=== PATIENT | female | born 1960 | race Caucasian/White ===

== ENCOUNTER 2019-08-24 04:43 | Inpatient (IN) ==
[2019-08-24] MEDS ORDERED: *HR* HYDROcodone/Acet 5/325 mg TABLET PO ONE (05:21)
[2019-08-24 05:42] LABS: Basophils % 0.1 %; Hematocrit 37.5 % (35.3-44.9); Hemoglobin 10.9 g/dL (11.5-15.4); Lymphocytes # 0.8 K/mcL (0.6-4.6); Lymphocytes % 3.4 %; Mean Corpuscular HGB Conc 29.1 g/dL (31.6-35.5); Mean Corpuscular Volume 92.8 fL (83.0-100.0); Mean Platelet Volume 9.3 fL (9.4-12.4); Monocytes # 0.5 K/mcL (0.0-1.3); Monocytes % 2.1 %; Neutrophils # 20.8 K/mcL (1.6-8.9); Platelet Count 167 K/mcL (140-400); Red Blood Count 4.04 M/mcL (3.82-4.97); Red Cell Distribution Width 16.8 % (11.5-14.5); Segmented Neutrophils % 93.4 %; White Blood Count 22.3 K/mcL (4.3-11.1)
[2019-08-24 05:49] LABS: INR 1.3; Prothrombin Time 14.2 Seconds (9.4-12.1)
[2019-08-24 05:49] LABS: ABG Base Excess 7 mEq/L (-2 to 3); ABG HCO3 34 mEq/L (21-27); ABG Oxygen Saturation 89 % (95-98); ABG PCO2 57 mmHg (35-45); ABG PH 7.38 pH Units (7.32-7.45); ABG PO2 59 mmHg (85-104); ABG TCO2 36 mEq/L (20-26)
[2019-08-24 05:53] LABS: Bilirubin,Urine Negative (Negative); Blood,Urine Negative (Negative); Clarity,Urine Clear (Clear); Color,Urine Yellow (Yellow); Glucose,Urine (UA) Normal (Normal); Ketones,Urine Negative (Negative); Leukocyte Esterase,Urine Negative (Negative); Nitrite,Urine Negative (Negative); PH,Urine 8.5 pH Units (5.0-8.0); Protein,Urine Negative (Neg-Trace); Specific Gravity,Urine 1.015 (1.010-1.025)
[2019-08-24 06:01] LABS: Alanine Aminotransferase 7 Units/L (7-52); Albumin 3.7 g/dL (3.5-5.7); Albumin/Globulin Ratio 1.1 (1.1-2.2); Alkaline Phosphatase 92 Units/L (34-104); Aspartate Amino Transferase 8 Units/L (13-39); BUN/Creatinine Ratio 14 (6-26); Bilirubin,Total 0.6 mg/dL (0.3-1.0); Blood Urea Nitrogen 14 mg/dL (6-20); Calcium 9.2 mg/dL (8.6-10.3); Carbon Dioxide 33 mEq/L (23-29); Chloride 96 mEq/L (98-107); Globulin 3.4 g/dL (2.4-3.5); Glucose 111 mg/dL (70-105); Magnesium 1.7 mg/dL (1.6-2.6); Osmolality,Calculated 281 (280-300); Potassium 4.2 mEq/L (3.5-5.1); Sodium 135 mEq/L (136-145); Total Protein 7.1 g/dL (6.4-8.9); eGFR For African Americans > 60 (> 60); eGFR For Non-African Americans 55 (> 60)
[2019-08-24 06:05] LABS: Troponin I < 0.03 ng/mL (< 0.04)
[2019-08-24] MEDS ORDERED: Azithromycin 500 MG in 0.9 % Sodium Chloride 250 ML IVPB ONE ×2 (06:09→06:32)
[2019-08-24] MEDS ORDERED: cefTRIAXone 1,000 MG in Water for inj. (sterile) 10 ML IVP ONE ×2 (06:09→06:32)
[2019-08-24] MEDS ORDERED: *HR* Promethazine 25 MG/ML VIAL IVP PRN (06:32)
[2019-08-24] MEDS ORDERED: Albuterol 2.5 MG/3 ML NEBULIZER IH PRN (06:32)
[2019-08-24] MEDS ORDERED: NON-FORMULARY MEDICATION 1 EACH EACH (Cholecalciferol (Vitamin D3) [Vitamin D3] 50,000 UNI PO SCH (06:32)
[2019-08-24] MEDS: Ipratropium/Albuterol Neb 3 ML IH SCH ×4 (06:45→23:50)
[2019-08-24] MEDS: 0.9 % Sodium Chloride 1,000 ML IVC SCH ×2 (08:00→22:03)
[2019-08-24] MEDS ORDERED: RisperiDAL 3 MG TABLET PO SCH (09:00)
[2019-08-24] MEDS: Furosemide 40 MG TABLET PO SCH ×2 (10:41→23:49)
[2019-08-24] MEDS: tiZANidine 4 MG TABLET PO SCH ×2 (10:41→23:50)
[2019-08-24] MEDS: Folic Acid 1 MG TABLET PO SCH (10:41)
[2019-08-24] MEDS: Gabapentin 300 MG CAPSULE PO SCH (10:41)
[2019-08-24] MEDS: Cholecalciferol (D-3) 1,000 UNIT (25MCG) TABLET PO SCH ×2 (10:42→10:47)
[2019-08-24] MEDS ORDERED: methylPREDNISolone 125 MG/2 ML VIAL IM SCH (12:00)
[2019-08-24] MEDS: *HR* HYDROcodone/Acet 5/325 mg TABLET PO PRN (13:12)
[2019-08-24] MEDS: *HR* Rivaroxaban 10 MG TABLET PO SCH (17:16)
[2019-08-24] MEDS: Acetaminophen 325 MG TABLET PO PRN (18:53)
[2019-08-24] MEDS: Nystatin POWDER 30 GM BOTTLE TP SCH (23:49)
[2019-08-24] MEDS: Gabapentin 100 MG CAPSULE PO SCH (23:49)
[2019-08-24] MEDS: Melatonin 3 MG TABLET PO SCH (23:49)
[2019-08-25] MEDS: methylPREDNISolone 125 MG/2 ML VIAL IVPB SCH ×3 (00:43→16:52)
[2019-08-25] MEDS: Ipratropium/Albuterol Neb 3 ML IH SCH ×4 (03:40→21:10)
[2019-08-25] MEDS: Azithromycin 500 MG in D5% in Water 250 ML IVPB SCH (05:53)
[2019-08-25] MEDS: tiZANidine 4 MG TABLET PO SCH ×2 (07:52→21:11)
[2019-08-25] MEDS: Gabapentin 300 MG CAPSULE PO SCH (07:52)
[2019-08-25] MEDS: Folic Acid 1 MG TABLET PO SCH (08:10)
[2019-08-25] MEDS: Furosemide 40 MG TABLET PO SCH ×2 (08:10→21:10)
[2019-08-25] MEDS: Gabapentin 100 MG CAPSULE PO SCH ×3 (08:10→21:10)
[2019-08-25] MEDS: Acetaminophen 325 MG TABLET PO PRN (08:10)
[2019-08-25] MEDS: Nystatin POWDER 30 GM BOTTLE TP SCH ×2 (08:11→21:19)
[2019-08-25 08:56] LABS: Basophils % 0.2 %; Hematocrit 38.2 % (35.3-44.9); Hemoglobin 11.1 g/dL (11.5-15.4); Immature Granulocytes % 0.7 % (0-4); Lymphocytes # 0.9 K/mcL (0.6-4.6); Lymphocytes % 5.9 %; Mean Corpuscular HGB Conc 29.1 g/dL (31.6-35.5); Mean Corpuscular Volume 92.9 fL (83.0-100.0); Mean Platelet Volume 9.8 fL (9.4-12.4); Monocytes # 0.2 K/mcL (0.0-1.3); Platelet Count 183 K/mcL (140-400); Red Blood Count 4.11 M/mcL (3.82-4.97); Red Cell Distribution Width 17.2 % (11.5-14.5); Segmented Neutrophils % 92.2 %
[2019-08-25 09:07] LABS: BUN/Creatinine Ratio 17 (6-26); Blood Urea Nitrogen 16 mg/dL (6-20); Calcium 9.2 mg/dL (8.6-10.3); Carbon Dioxide 33 mEq/L (23-29); Chloride 98 mEq/L (98-107); Glucose 182 mg/dL (70-105); Osmolality,Calculated 288 (280-300); Potassium 3.8 mEq/L (3.5-5.1); Sodium 136 mEq/L (136-145); Troponin I < 0.03 ng/mL (< 0.04); eGFR For African Americans > 60 (> 60); eGFR For Non-African Americans > 60 (> 60)
[2019-08-25 09:22] LABS: Neutrophils # 13.8 K/mcL (1.6-8.9)
[2019-08-25] MEDS: *HR* HYDROcodone/Acet 5/325 mg TABLET PO PRN (12:22)
[2019-08-25] MEDS: *HR* Rivaroxaban 10 MG TABLET PO SCH (16:52)
[2019-08-25] MEDS: Melatonin 3 MG TABLET PO SCH (21:10)
[2019-08-25] MEDS: RisperiDAL 3 MG TABLET PO SCH (21:11)
[2019-08-26] MEDS: Ipratropium/Albuterol Neb 3 ML IH SCH ×4 (04:27→21:10)
[2019-08-26] MEDS: Azithromycin 500 MG in D5% in Water 250 ML IVPB SCH (07:57)
[2019-08-26] MEDS: Gabapentin 100 MG CAPSULE PO SCH ×3 (08:02→21:09)
[2019-08-26] MEDS: Folic Acid 1 MG TABLET PO SCH (08:03)
[2019-08-26] MEDS: predniSONE 10 MG TABLET PO SCH (08:03)
[2019-08-26] MEDS: Furosemide 40 MG TABLET PO SCH ×2 (08:03→21:19)
[2019-08-26] MEDS: Nystatin POWDER 30 GM BOTTLE TP SCH ×2 (08:03→21:23)
[2019-08-26] MEDS: *HR* HYDROcodone/Acet 5/325 mg TABLET PO PRN ×2 (08:03→21:15)
[2019-08-26 10:08] LABS: Hematocrit 36.3 % (35.3-44.9); Hemoglobin 10.6 g/dL (11.5-15.4); Mean Corpuscular HGB Conc 29.2 g/dL (31.6-35.5); Mean Corpuscular Hemoglobin 27.4 pg (28.0-33.3); Mean Corpuscular Volume 93.8 fL (83.0-100.0); Platelet Count 199 K/mcL (140-400); Red Blood Count 3.87 M/mcL (3.82-4.97); Red Cell Distribution Width 17.2 % (11.5-14.5); White Blood Count 13.9 K/mcL (4.3-11.1)
[2019-08-26 10:22] LABS: Alanine Aminotransferase 6 Units/L (7-52); Albumin 3.4 g/dL (3.5-5.7); Albumin/Globulin Ratio 0.9 (1.1-2.2); Alkaline Phosphatase 70 Units/L (34-104); Aspartate Amino Transferase 6 Units/L (13-39); BUN/Creatinine Ratio 21 (6-26); Bilirubin,Total 0.3 mg/dL (0.3-1.0); Blood Urea Nitrogen 20 mg/dL (6-20); Calcium 8.9 mg/dL (8.6-10.3); Carbon Dioxide 34 mEq/L (23-29); Chloride 98 mEq/L (98-107); Globulin 3.6 g/dL (2.4-3.5); Glucose 138 mg/dL (70-105); Magnesium 2.1 mg/dL (1.6-2.6); Osmolality,Calculated 285 (280-300); Potassium 3.9 mEq/L (3.5-5.1); Sodium 135 mEq/L (136-145); eGFR For African Americans > 60 (> 60); eGFR For Non-African Americans > 60 (> 60)
[2019-08-26] MEDS: *HR* Rivaroxaban 10 MG TABLET PO SCH (16:31)
[2019-08-26] MEDS: Acetaminophen 325 MG TABLET PO PRN (16:33)
[2019-08-26] MEDS: tiZANidine 4 MG TABLET PO SCH (21:09)
[2019-08-26] MEDS: RisperiDAL 3 MG TABLET PO SCH (21:09)
[2019-08-26] MEDS: Melatonin 3 MG TABLET PO SCH (21:09)
[2019-08-27] MEDS: Ipratropium/Albuterol Neb 3 ML IH SCH ×4 (03:49→22:40)
[2019-08-27] MEDS: Azithromycin 500 MG in D5% in Water 250 ML IVPB SCH (06:21)
[2019-08-27] MEDS: Gabapentin 100 MG CAPSULE PO SCH ×3 (08:23→21:09)
[2019-08-27] MEDS: predniSONE 10 MG TABLET PO SCH (08:23)
[2019-08-27] MEDS: Furosemide 40 MG TABLET PO SCH ×2 (08:23→21:09)
[2019-08-27] MEDS: *HR* HYDROcodone/Acet 5/325 mg TABLET PO PRN ×2 (08:23→22:39)
[2019-08-27] MEDS: Folic Acid 1 MG TABLET PO SCH (08:23)
[2019-08-27] MEDS: Nystatin POWDER 30 GM BOTTLE TP SCH ×2 (08:24→22:42)
[2019-08-27] MEDS ORDERED: Cholecalciferol (D-3) 1,000 UNIT (25MCG) TABLET PO SCH (09:00)
[2019-08-27] MEDS: *HR* Rivaroxaban 10 MG TABLET PO SCH (16:18)
[2019-08-27] MEDS: tiZANidine 4 MG TABLET PO SCH (21:09)
[2019-08-27] MEDS: RisperiDAL 3 MG TABLET PO SCH (21:10)
[2019-08-27] MEDS: Melatonin 3 MG TABLET PO SCH (22:40)
[2019-08-28] MEDS: Ipratropium/Albuterol Neb 3 ML IH SCH ×2 (03:58→12:50)
[2019-08-28 06:07] LABS: Hematocrit 37.4 % (35.3-44.9); Hemoglobin 10.7 g/dL (11.5-15.4); Mean Corpuscular HGB Conc 28.6 g/dL (31.6-35.5); Mean Corpuscular Hemoglobin 26.7 pg (28.0-33.3); Mean Corpuscular Volume 93.3 fL (83.0-100.0); Mean Platelet Volume 9.3 fL (9.4-12.4); Platelet Count 196 K/mcL (140-400); Red Blood Count 4.01 M/mcL (3.82-4.97); Red Cell Distribution Width 16.6 % (11.5-14.5); White Blood Count 8.4 K/mcL (4.3-11.1)
[2019-08-28 06:42] LABS: BUN/Creatinine Ratio 20 (6-26); Blood Urea Nitrogen 19 mg/dL (6-20); Carbon Dioxide 40 mEq/L (23-29); Chloride 97 mEq/L (98-107); Glucose 116 mg/dL (70-105); Osmolality,Calculated 291 (280-300); Potassium 3.8 mEq/L (3.5-5.1); Sodium 139 mEq/L (136-145); eGFR For African Americans > 60 (> 60); eGFR For Non-African Americans 60 (> 60)
[2019-08-28 07:29] VITALS: BP 132/74
[2019-08-28] MEDS: Nystatin POWDER 30 GM BOTTLE TP SCH (07:47)
[2019-08-28] MEDS: Gabapentin 100 MG CAPSULE PO SCH (07:47)
[2019-08-28] MEDS: Folic Acid 1 MG TABLET PO SCH (07:47)
[2019-08-28] MEDS: Furosemide 40 MG TABLET PO SCH (07:47)
[2019-08-28] MEDS ORDERED: Cefdinir 300 MG CAPSULE PO SCH (09:00)
== END 2019-08-28 14:30 | disposition home health service (06) | DRG 194 ==
LOC: INPGRE 04:43 → EMEROOGRE 04:43 → INPGRE 07:11

== ENCOUNTER 2019-09-29 12:29 | Inpatient (IN) ==
[2019-09-29 13:12] LABS: Basophils % 0.3 %; Hematocrit 38.6 % (35.3-44.9); Hemoglobin 11.3 g/dL (11.5-15.4); Immature Granulocytes % 0.5 % (0-4); Lymphocytes % 16.1 %; Mean Corpuscular HGB Conc 29.3 g/dL (31.6-35.5); Mean Corpuscular Hemoglobin 26.9 pg (28.0-33.3); Mean Corpuscular Volume 91.9 fL (83.0-100.0); Mean Platelet Volume 9.7 fL (9.4-12.4); Monocytes # 0.5 K/mcL (0.0-1.3); Monocytes % 7.8 %; Neutrophils # 4.6 K/mcL (1.6-8.9); Platelet Count 155 K/mcL (140-400); Red Cell Distribution Width 17.2 % (11.5-14.5); Segmented Neutrophils % 75.3 %; White Blood Count 6.2 K/mcL (4.3-11.1)
[2019-09-29 13:26] LABS: Albumin/Globulin Ratio 1.1 (1.1-2.2); Bilirubin,Total 0.7 mg/dL (0.3-1.0); Globulin 3.5 g/dL (2.4-3.5); Potassium 3.8 mEq/L (3.5-5.1); Total Protein 7.5 g/dL (6.4-8.9)
[2019-09-29] MEDS ORDERED: 0.9 % Sodium Chloride 500 ML IVC ONE (13:29)
[2019-09-29] MEDS ORDERED: cefTRIAXone 1,000 MG in 0.9 % Sodium Chloride Mini Bag 100 ML IVPB ONE (13:30)
[2019-09-29] MEDS ORDERED: Azithromycin 500 MG in 0.9 % Sodium Chloride 250 ML IVPB ONE ×2 (15:14→17:27)
[2019-09-29] MEDS ORDERED: *HR* Promethazine 25 MG/ML VIAL IVP PRN ×2 (15:21→17:27)
[2019-09-29] MEDS ORDERED: Naloxone 0.4 MG/ML INJ IVP PRN ×2 (15:21→17:27)
[2019-09-29] MEDS ORDERED: Piperacillin/Tazobactam 3.375 GM in 0.9 % Sodium Chloride Mini Bag 100 ML IVPB SCH (16:00)
[2019-09-29] MEDS ORDERED: 0.9 % Sodium Chloride 1,000 ML IVC SCH (18:00)
[2019-09-29] MEDS: Cholecalciferol (D-3) 1,000 UNIT (25MCG) TABLET PO SCH (18:55)
[2019-09-29] MEDS: Melatonin 3 MG TABLET PO SCH (21:51)
[2019-09-29] MEDS: Gabapentin 300 MG CAPSULE PO SCH (21:52)
[2019-09-29] MEDS: Ipratropium/Albuterol Neb 3 ML IH SCH (21:55)
[2019-09-29] MEDS: Piperacillin/Tazobactam 3.375 GM in 0.9 % Sodium Chloride Mini Bag 100 ML IVPB SCH (23:56)
[2019-09-30] MEDS: Ipratropium/Albuterol Neb 3 ML IH SCH ×4 (03:56→22:10)
[2019-09-30 06:52] LABS: Basophils % 0.2 %; Hematocrit 35.2 % (35.3-44.9); Hemoglobin 10.5 g/dL (11.5-15.4); Immature Granulocytes % 0.4 % (0-4); Lymphocytes # 1.3 K/mcL (0.6-4.6); Lymphocytes % 26.7 %; Mean Corpuscular HGB Conc 29.8 g/dL (31.6-35.5); Mean Corpuscular Hemoglobin 27.7 pg (28.0-33.3); Mean Corpuscular Volume 92.9 fL (83.0-100.0); Mean Platelet Volume 10.2 fL (9.4-12.4); Monocytes # 0.4 K/mcL (0.0-1.3); Monocytes % 7.4 %; Neutrophils # 3.3 K/mcL (1.6-8.9); Platelet Count 111 K/mcL (140-400); Red Blood Count 3.79 M/mcL (3.82-4.97); Red Cell Distribution Width 17.5 % (11.5-14.5); Segmented Neutrophils % 65.3 %
[2019-09-30 07:10] LABS: Albumin 3.5 g/dL (3.5-5.7); Albumin/Globulin Ratio 1.1 (1.1-2.2); Bilirubin,Total 0.6 mg/dL (0.3-1.0); Calcium 8.4 mg/dL (8.6-10.3); Globulin 3.1 g/dL (2.4-3.5); Magnesium 2.3 mg/dL (1.6-2.6); Potassium 4.1 mEq/L (3.5-5.1); Total Protein 6.6 g/dL (6.4-8.9)
[2019-09-30] MEDS: *HR* Rivaroxaban 10 MG TABLET PO SCH (09:32)
[2019-09-30] MEDS: Gabapentin 300 MG CAPSULE PO SCH ×3 (09:32→22:10)
[2019-09-30] MEDS: Folic Acid 1 MG TABLET PO SCH (09:33)
[2019-09-30] MEDS: Piperacillin/Tazobactam 3.375 GM in 0.9 % Sodium Chloride Mini Bag 100 ML IVPB SCH ×2 (09:34→18:16)
[2019-09-30] MEDS: Cholecalciferol (D-3) 1,000 UNIT (25MCG) TABLET PO SCH (09:37)
[2019-09-30] MEDS: risperiDONE 1 MG TABLET PO SCH ×2 (09:37→09:44)
[2019-09-30] MEDS: (Mirabegron [Myrbetriq] 50 MG) PO SCH (09:37)
[2019-09-30 14:10] LABS: Estimated Average Glucose 117 mg/dl
[2019-09-30 18:13] LABS: Adenovirus Not Detected (Not Detect); Coronavirus 229E Not Detected (Not Detect); Coronavirus HKU1 Not Detected (Not Detect); Coronavirus NL63 Not Detected (Not Detect); Coronavirus OC43 Not Detected (Not Detect); Human Metapneumovirus Not Detected (Not Detect); Human Rhinovirus/Enterovirus Not Detected (Not Detect)
[2019-09-30 18:14] LABS: Bordetella Pertussis Not Detected (Not Detect); Chlamydophila pneumoniae Not Detected (Not Detect); Influenza A Subtype 2009 H1 Not Detected (Not Detect); Influenza B Not Detected (Not Detect); Mycoplasma pneumoniae Not Detected (Not Detect); Parainfluenza Virus 1 Not Detected (Not Detect); Parainfluenza Virus 2 Not Detected (Not Detect); Parainfluenza Virus 3 Not Detected (Not Detect); Parainfluenza Virus 4 Not Detected (Not Detect); Respiratory Syncytial Virus Not Detected (Not Detect)
[2019-09-30] MEDS: *HR* HYDROcodone/Acet 5/325 mg TABLET PO SCH (22:10)
[2019-09-30] MEDS: Melatonin 3 MG TABLET PO SCH (22:10)
[2019-10-01] MEDS: Piperacillin/Tazobactam 3.375 GM in 0.9 % Sodium Chloride Mini Bag 100 ML IVPB SCH ×3 (00:19→17:44)
[2019-10-01] MEDS: Ipratropium/Albuterol Neb 3 ML IH SCH ×5 (04:32→21:33)
[2019-10-01] MEDS: (Mirabegron [Myrbetriq] 50 MG) PO SCH (07:55)
[2019-10-01] MEDS: risperiDONE 1 MG TABLET PO SCH (08:11)
[2019-10-01] MEDS: Gabapentin 300 MG CAPSULE PO SCH ×3 (08:11→21:33)
[2019-10-01] MEDS: Acetaminophen 325 MG TABLET PO PRN ×2 (08:11→17:51)
[2019-10-01] MEDS: *HR* Rivaroxaban 10 MG TABLET PO SCH (08:11)
[2019-10-01] MEDS: Folic Acid 1 MG TABLET PO SCH (08:12)
[2019-10-01] MEDS: Cholecalciferol (D-3) 1,000 UNIT (25MCG) TABLET PO SCH (08:12)
[2019-10-01] MEDS: Furosemide 40 MG TABLET PO SCH (09:32)
[2019-10-01] MEDS: *HR* HYDROcodone/Acet 5/325 mg TABLET PO SCH ×2 (09:45→21:34)
[2019-10-01] MEDS ORDERED: Menthol 9.1 MG LOZENGE PO PRN (10:29)
[2019-10-01] MEDS: Melatonin 3 MG TABLET PO SCH (21:34)
[2019-10-02] MEDS: Piperacillin/Tazobactam 3.375 GM in 0.9 % Sodium Chloride Mini Bag 100 ML IVPB SCH ×3 (00:35→16:11)
[2019-10-02] MEDS: Ipratropium/Albuterol Neb 3 ML IH SCH ×4 (04:17→22:17)
[2019-10-02 06:12] LABS: Hematocrit 35.4 % (35.3-44.9); Hemoglobin 10.2 g/dL (11.5-15.4); Mean Corpuscular HGB Conc 28.8 g/dL (31.6-35.5); Mean Corpuscular Volume 93.7 fL (83.0-100.0); Mean Platelet Volume 10.3 fL (9.4-12.4); Platelet Count 173 K/mcL (140-400); Red Blood Count 3.78 M/mcL (3.82-4.97); Red Cell Distribution Width 16.9 % (11.5-14.5); White Blood Count 4.3 K/mcL (4.3-11.1)
[2019-10-02 06:15] LABS: BUN/Creatinine Ratio 17 (6-26); Blood Urea Nitrogen 17 mg/dL (6-20); Carbon Dioxide 42 mEq/L (23-29); Chloride 95 mEq/L (98-107); Glucose 125 mg/dL (70-105); Magnesium 2.4 mg/dL (1.6-2.6); Osmolality,Calculated 295 (280-300); Potassium 3.7 mEq/L (3.5-5.1); Sodium 141 mEq/L (136-145); eGFR For African Americans > 60 (> 60); eGFR For Non-African Americans 56 (> 60)
[2019-10-02] MEDS: *HR* HYDROcodone/Acet 5/325 mg TABLET PO SCH ×2 (08:36→21:40)
[2019-10-02] MEDS: *HR* Rivaroxaban 10 MG TABLET PO SCH (08:36)
[2019-10-02] MEDS: Cholecalciferol (D-3) 1,000 UNIT (25MCG) TABLET PO SCH (08:36)
[2019-10-02] MEDS: Gabapentin 300 MG CAPSULE PO SCH ×3 (08:36→21:40)
[2019-10-02] MEDS: Folic Acid 1 MG TABLET PO SCH (08:37)
[2019-10-02] MEDS: risperiDONE 1 MG TABLET PO SCH (11:34)
[2019-10-02] MEDS: Furosemide 40 MG TABLET PO SCH ×2 (11:35→14:51)
[2019-10-02] MEDS: (Mirabegron [Myrbetriq] 50 MG) PO SCH (11:35)
[2019-10-02] MEDS ORDERED: Furosemide 20 MG/2 ML VIAL IVP ONE (14:04)
[2019-10-02] MEDS: acetaZOLAMIDE 250 MG TABLET PO SCH (16:12)
[2019-10-02] MEDS: Acetaminophen 325 MG TABLET PO PRN (17:29)
[2019-10-02] MEDS: Melatonin 3 MG TABLET PO SCH (21:40)
[2019-10-03] MEDS: Ipratropium/Albuterol Neb 3 ML IH SCH ×2 (04:17→09:44)
[2019-10-03] MEDS: risperiDONE 1 MG TABLET PO SCH (07:48)
[2019-10-03] MEDS: *HR* Rivaroxaban 10 MG TABLET PO SCH (07:48)
[2019-10-03] MEDS: acetaZOLAMIDE 250 MG TABLET PO SCH (07:49)
[2019-10-03] MEDS: Folic Acid 1 MG TABLET PO SCH (07:49)
[2019-10-03] MEDS: Furosemide 40 MG TABLET PO SCH (07:49)
[2019-10-03] MEDS: Cholecalciferol (D-3) 1,000 UNIT (25MCG) TABLET PO SCH (07:50)
[2019-10-03] MEDS: Gabapentin 300 MG CAPSULE PO SCH (07:50)
[2019-10-03] MEDS: (Mirabegron [Myrbetriq] 50 MG) PO SCH (07:50)
[2019-10-03] MEDS: Piperacillin/Tazobactam 3.375 GM in 0.9 % Sodium Chloride Mini Bag 100 ML IVPB SCH ×2 (07:50)
[2019-10-03 10:41] LABS: BUN/Creatinine Ratio 14 (6-26); Blood Urea Nitrogen 16 mg/dL (6-20); Calcium 8.9 mg/dL (8.6-10.3); Carbon Dioxide 36 mEq/L (23-29); Chloride 98 mEq/L (98-107); Glucose 154 mg/dL (70-105); Magnesium 2.2 mg/dL (1.6-2.6); Osmolality,Calculated 294 (280-300); Potassium 3.7 mEq/L (3.5-5.1); Sodium 140 mEq/L (136-145); eGFR For African Americans > 60 (> 60); eGFR For Non-African Americans 51 (> 60)
[2019-10-03] MEDS: *HR* HYDROcodone/Acet 5/325 mg TABLET PO SCH (10:47)
[2019-10-03 11:55] VITALS: BP 128/69
== END 2019-10-03 13:15 | disposition home health service (06) | DRG 194 ==
LOC: INPGRE 12:29 → EMEROOGRE 12:29 → INPGRE 15:21 → OBSVTOIN 15:27 → INPGRE 16:16
PROVIDERS: ADMIT Family Medicine; ATTEND Family Medicine